=== PATIENT | male | born 1975 | race African-American/Black ===

== ENCOUNTER 2024-10-05 12:40 | Emergency (ER) | payer OTHER ==
[~2024-10-05] VITALS: Ht 180.3 cm; Wt 132.0 kg
[2024-10-05 14:19] LABS: CALCIUM, TOTAL 8.8 mg/dL (8.8-10.5); CREATININE 1.36 mg/dL (0.60-1.30); GLOMERULAR FILTR. RATE CALC > 60 mL/min (>60); GLUCOSE,RANDOM 105 mg/dL (70-110); SODIUM SERUM 141 mmol/L (136-145); UREA NITROGEN, BLOOD 12 mg/dL (7-18)
[2024-10-05 14:20] LABS: PLATELET COUNT (AUTO) 188 K/uL (150-450); RED BLOOD CELL COUNT(AUTO) 5.22 MIL/uL (4.50-5.90); RED CELL DISTRIBUTION WIDTH 13.4 % (11.5-14.5); WHITE BLOOD COUNT (AUTO) 6.0 K/uL (4.5-11.0)
[2024-10-05 14:24] LABS: CREATINE KINASE, TOTAL ONLY 244 U/L (39-308)
[2024-10-05 14:29] LABS: TROPONIN I-HIGH SENSITIVITY 7 ng/L (<76)
[2024-10-05 15:19] LABS: APPEARANCE,URINE CLEAR (CLEAR); GLUCOSE, URINE (UA) NEGATIVE (NEGATIVE); LEUKOCYTE ESTERASE ,URINE NEGATIVE (NEGATIVE); NITRATE,URINE NEGATIVE (NEGATIVE); OCCULT BLOOD,URINE NEGATIVE (NEGATIVE); SPECIFIC GRAVITIY, URINE 1.019 (1.003-1.030)
[2024-10-05 15:52] VITALS: BP 118/75; PULSE 70; RESP 15; TEMP 98.805344; O2SAT 96
== END 2024-10-05 15:57 | disposition home or self-care (01) ==
LOC: EMS 12:42
DX: R42 Dizziness and giddiness (principal); R06.02 Shortness of breath
CPT/HCPCS: 71045; 80048; 81003; 82550; 83880; 84484; 85025; 93005; 99285; 36415-L1; 36415-TC